=== PATIENT | female | born 1965 | race Caucasian/White ===

== ENCOUNTER → 2021-03-06 | Outpatient (CLI) | payer OTHER | LOC: KOH-I 09:19 | DX: M54.5 Low back pain (principal); M79.7 Fibromyalgia; I10 Essential (primary) hypertension; M47.814 Spondylosis without myelopathy or radiculopathy, thoracic region; M47.816 Spondylosis without myelopathy or radiculopathy, lumbar region | CPT/HCPCS: 72070; 72110 ==

== ENCOUNTER → 2021-08-15 | Outpatient (CLI) | payer OTHER | LOC: EMI 08:00 | DX: M54.50 Low back pain, unspecified (principal); M79.7 Fibromyalgia; I10 Essential (primary) hypertension; M51.36 Other intervertebral disc degeneration, lumbar region; M51.17 Intervertebral disc disorders with radiculopathy, lumbosacral region; M48.061 Spinal stenosis, lumbar region without neurogenic claudication; M48.07 Spinal stenosis, lumbosacral region | CPT/HCPCS: 72148 ==